=== PATIENT | male | born 1990 | race Hispanic/Latino ===

== ENCOUNTER 2021-09-23 16:39 | Emergency (ER) | payer SELFPAY ==
[~2021-09-23] VITALS: Ht 172.7 cm; Wt 106.5 kg
[~2021-09-23 16:39] MED LIST: CIPROFLOXACN0.3 % OD; ERYTHROMYCIN250 MG PO; FLEXERIL PO; GENTAMICIN15 ML/BTL OP; NAPROSYN500 MG PO; ULTRAM50 M1 PO; VENTOLIN HFA IN
[2021-09-23 16:57] VITALS: BP 120/74
[2021-09-23] MEDS ORDERED: AMOX/K CLAV875 M1 PO ×2 (17:28→17:33)
[2021-09-23] MEDS ORDERED: CORTISPORIN OTI10 ML AS ×2 (17:28→17:33)
== END 2021-09-23 17:36 | disposition home or self-care (01) | DRG 156 ==
LOC: ED 16:39
PROC: 09C4XZZ Extirpation of Matter from Left External Auditory Canal, External Approach (ICD-10-PCS; principal; 2021-09-23)
DX: T16.2XXA Foreign body in left ear, initial encounter (principal); H60.92 Unspecified otitis externa, left ear; H66.92 Otitis media, unspecified, left ear; J45.909 Unspecified asthma, uncomplicated; X58.XXXA Exposure to other specified factors, initial encounter